=== PATIENT | female | born 1950 | race Caucasian/White ===

== ENCOUNTER 2018-09-07 07:45 | Inpatient (IN) | payer OTHER ==
[~2018-09-07] VITALS: Ht 170.2 cm; Wt 165.0 kg
[2018-09-07] MEDS ORDERED: LISINOPRIL20 MG PO (10:20)
[2018-09-07] MEDS ORDERED: METROPOLOL PO (10:20)
[2018-09-07] MEDS ORDERED: PAXIL20 MG PO (10:21)
[2018-09-07] MEDS ORDERED: HCTZ PO (10:21)
[2018-09-07] MEDS ORDERED: CYMBALTA PO (10:22)
[2018-09-07] MEDS ORDERED: GABAPENT PO (10:22)
[2018-09-07] MEDS ORDERED: NAPROXYN PO (10:23)
[2018-09-14] MEDS ORDERED: NAPROXEN SODIU550 MG PO (11:11)
[2018-09-14] MEDS ORDERED: GABAPENTIN100 MG PO (11:11)
[2018-09-14] MEDS ORDERED: HYDROCHLOROTHIA25 MG PO (11:12)
[2018-09-14] MEDS ORDERED: METOPROLOL TART50 MG PO (11:12)
[2018-09-14] MEDS ORDERED: DULOXETINE HCL30 MG PO (11:13)
[2018-09-16] MEDS ORDERED: BACTRIM DS TAB1 EACH PO (15:09)
[2018-09-16] MEDS ORDERED: INTEGRA PLUS C1 EACH PO (15:09)
[2018-09-16] MEDS ORDERED: ELIQUIS2.5 MG PO (15:09)
[2018-09-16] MEDS ORDERED: OXYC1TAB9 PO (15:09)
== END 2018-09-16 21:45 | DRG 468 ==
LOC: SURH 09-14 06:00 → O/R 09-14 06:00 → SURH 09-14 07:45
PROVIDERS: ADMIT Orthopaedic Surgery Sports Medicine
PROC: 0SWC0JZ Revision of Synthetic Substitute in Right Knee Joint, Open Approach (ICD-10-PCS; principal; 2018-09-14 10:45)
DX: T84.032A Mechanical loosening of internal right knee prosthetic joint, initial encounter (principal); M25.561 Pain in right knee; M65.861 Other synovitis and tenosynovitis, right lower leg; M79.7 Fibromyalgia; G47.00 Insomnia, unspecified; E78.49 Other hyperlipidemia; G62.89 Other specified polyneuropathies; Z96.651 Presence of right artificial knee joint